=== PATIENT | male | born 1955 | race Caucasian/White ===

== ENCOUNTER 2016-07-08 09:44 | Emergency (ER) | payer BC ==
[~2016-07-08] VITALS: Ht 177.8 cm; Wt 88.5 kg
[2016-07-08 09:47] VITALS: BP 134/87
--- NOTE | 2016-07-08 10:18 | PHYS DOC ---
Adult General Chief Complaint Chief Complaint: HAND PROBLEM HPI HPI Patient is a 61 year old male presents to the emergency department with a history of pain to the left middle finger that started yesterday. Patient states he was chopping wood when one piece stuck together he states he tried to get it apart when it flipped back and hit the left middle finger. Patient states this happened last night. Patient with swelling and pain. He presents with the second and third finger splinted on a piece of wood. [] Review of Systems Review of Systems Constitutional: Denies fever or chills [] Eyes: Denies change in visual acuity, redness, or eye pain [] HENT: Denies nasal congestion or sore throat [] Respiratory: Denies cough or shortness of breath [] Cardiovascular: No additional information not addressed in HPI [] GI: Denies abdominal pain, nausea, vomiting, bloody stools or diarrhea [] : Denies dysuria or hematuria [] Musculoskeletal: Denies back pain. Pain and swelling to the left third finger. Integument: Denies rash or skin lesions [] Neurologic: Denies headache, focal weakness or sensory changes [] Endocrine: Denies polyuria or polydipsia [] Allergies Allergies Allergies Coded Allergies Type Severity Reaction Last Updated Verified No Known Drug Allergies 07/08/16 No Physical Exam Physical Exam Constitutional: Well developed, well nourished, no acute distress, non-toxic appearance. [] HENT: Normocephalic, atraumatic, bilateral external ears normal, oropharynx moist, no oral exudates, nose normal. [] Eyes: PERRLA, EOMI, conjunctiva normal, no discharge. [] Neck: Normal range of motion, no tenderness, supple, no stridor. [] Cardiovascular:Heart rate regular rhythm Lungs & Thorax: no respiratory distress noted Skin: Warm, dry, no erythema, no rash. [] Back: No tenderness Extremities: Left third finger with swelling and tenderness, no cyanosis, no clubbing, ROM intact, no edema. Patient with good sensation noted to finger tips , cap refill brisk <2 seconds Neurologic: Alert and oriented X 3, normal motor function, normal sensory function, no focal deficits noted. [] Psychologic: Affect normal, judgement normal, mood normal. [] EKG EKG [] Radiology/Procedures Radiology/Procedures [][facility] [address] [place] [address] IMAGING REPORT Signed PATIENT: LEX FERRELL ACCOUNT: [id number] : 1955 LOCATION: ER AGE: 61 SEX: M EXAM STATUS: REG ER ORD. PHYSICIAN: ELMER CARLTON DO REASON: INJURY PROCEDURE: HAND LEFT 2V EXAM: Left hand, 3 views. HISTORY: Pain. COMPARISON: None. FINDINGS: Frontal, lateral and oblique views of the left hand are obtained. There is a nondisplaced fracture of the proximal third proximal phalanx. No intra-articular fracture line is seen. There is no foreign body. There are tiny ossicles at the bases of the first proximal and distal phalanges, likely developmental or the sequela of remote injury. IMPRESSION: Nondisplaced fracture of the proximal third proximal phalanx. DICTATED and SIGNED BY: CRISSY MIRANDA MD DATE: 07/08/16 1025 CC: HUNTER TAYLOR APRN; ALESHA GARCIA; ELMER CARLTON DO ~ Course & Med Decision Making Course & Med Decision Making Pertinent Labs and Imaging studies reviewed. (See chart for details) X-ray were positive for fracture in the third. Patient will be placed in aluminum splint with follow-up recommendations with . Shunt will be encouraged to use ibuprofen 800 mg every 8 hours for inflammation and pain. He' ll be provided with Gilboa for severe pain and discomfort. He is instructed this medication will cause drowsiness do not take any be alert and oriented. Recommended ice packs on 20 minutes off 20 minutes several times a day. Elevation as much as possible. Patient will be discharged home in stable condition signs and symptoms to return back to the emergency department as been provided. [] Dragon Disclaimer Dragon Disclaimer This electronic medical record was generated, in whole or in part, using a voice recognition dictation system. Departure Departure Impression: Primary Impression: Finger fracture, left Disposition: 01 HOME, SELF-CARE Condition: STABLE Referrals: JESSICA ALVA MD Patient Instructions: Finger Fracture, [id number] Additional Instructions: X-ray was positive for fracture in the middle finger. Wear the aluminum splint until you follow-up with orthopedic. Ice packs on 20 minutes off 20 minutes several times a day. Elevation as much as possible. Ibuprofen 800 mg every 8 hours with food stop taking few develop upset stomach. Gilboa for severe pain and discomfort. This medication will cause drowsiness do not take any be alert and oriented. Follow-up with for further evaluation of your finger fracture. Disposition is in the office with Dr. Gooden in which the number as been provided for you. Return back to emergency prior signs symptoms of become worse. Scripts Hydrocodone/Apap 5-325 (NORCO 5-325 TABLET) 1 Each Tablet 1 TAB PO PRN Q6HRS Y for PAIN, #20 TAB 0 Refills Prov: HUNTER TAYLOR APRN 07/08/16 HUNTER TAYLOR APRN July 08, 2016 10:18
--- NOTE | 2016-07-08 10:29 | RAD ---
EXAM: Left hand, 3 views. HISTORY: Pain. COMPARISON: None. FINDINGS: Frontal, lateral and oblique views of the left hand are obtained. There is a nondisplaced fracture of the proximal third proximal phalanx. No intra-articular fracture line is seen. There is no foreign body. There are tiny ossicles at the bases of the first proximal and distal phalanges, likely developmental or the sequela of remote injury. IMPRESSION: Nondisplaced fracture of the proximal third proximal phalanx.
[2016-07-08] MEDS ORDERED: HYDR-971 PO (10:35)
[2016-07-08] MEDS ORDERED: HYDROcodone/APAP 5/325MG 1 TAB TABLET PO ONE (10:45)
== END 2016-07-08 10:52 | disposition home or self-care (01) ==
LOC: ER 09:44
DX: S62.643A Nondisplaced fracture of proximal phalanx of left middle finger, initial encounter for closed fracture (principal); W22.8XXA Striking against or struck by other objects, initial encounter; Y93.89 Activity, other specified; Y92.89 Other specified places as the place of occurrence of the external cause; Y99.8 Other external cause status
CPT/HCPCS: 29130; 73120; 99284-25

== ENCOUNTER → 2020-01-04 | Outpatient (CLI) | payer OTHER ==
[~2020-01-04] MED LIST: HYDR-3164 PO
--- NOTE | 2020-01-04 16:38 | RAD ---
KNEE RIGHT 2V DATE: 01/04/2020 12:00 AM INDICATION: LOW BACK PAIN. LEFT HIP AND RIGHT KNEE PAIN. / Spl. Instructions: / History: COMPARISON: None. FINDINGS: Bones: There is no evidence of acute fracture or dislocation. Joints: Mild degenerative changes of the medial and patellofemoral compartments of the knee. There is no joint effusion. Miscellaneous: None. IMPRESSION: 1. No acute osseous abnormality. 2. Mild degenerative changes of the medial and patellofemoral compartments. Electronically signed by: Omar Zambrano MD (01/04/2020 4:35 PM) [id number]
--- NOTE | 2020-01-04 16:39 | RAD ---
HIP LEFT 2V WITH PELVIS DATE: 01/04/2020 12:00 AM INDICATION: Reason: LEFT HIP PAIN / Spl. Instructions: / History: COMPARISON: None. FINDINGS: Bones: There is no evidence of acute fracture or dislocation. Joints: Mild degenerative changes of the left hip Miscellaneous: None. IMPRESSION: Mild degenerative changes of the left hip Electronically signed by: Omar Zambrano MD (01/04/2020 4:36 PM) [id number]
--- NOTE | 2020-01-04 16:39 | RAD ---
LUMBAR SPINE 2-3V DATE: 01/04/2020 12:00 AM INDICATION: LOW BACK PAIN / Spl. Instructions: / History: COMPARISON: None. FINDINGS: Five non-rib bearing lumbar-type vertebral bodies are present. Bones/Alignment: No evidence of acute compression fracture. There is no listhesis. Joints: Moderate multilevel degenerative disc disease. Lower lumbar facet arthropathy. Miscellaneous: None. IMPRESSION: Moderate lumbar spondylosis. Electronically signed by: Omar Zambrano MD (01/04/2020 4:36 PM) [id number]
== END ==
LOC: RAD 11:50
PROVIDERS: ATTEND Anesthesiology Pain Medicine
DX: M47.816 Spondylosis without myelopathy or radiculopathy, lumbar region (principal); M51.36 Other intervertebral disc degeneration, lumbar region; M16.12 Unilateral primary osteoarthritis, left hip; M17.11 Unilateral primary osteoarthritis, right knee
CPT/HCPCS: 72100; 73502; 73560